=== PATIENT | male | born 1950 | race Hispanic/Latino ===

== ENCOUNTER 2017-10-16 16:49 | Emergency (ER) | payer MEDICARE ==
[2017-10-16 17:39] VITALS: BMI 23.2
--- NOTE | 2017-10-16 17:57 | ED PDOC ---
Arrival/HPI - General Chief Complaint: Psychiatric Evaluation Time Seen by Provider: 10/16/17 16:51 Historian: Patient - History of Present Illness Narrative History of Present Illness (Text): 10/16/17 16:55 Vamsi Rashid is a 66 year old male, whose past medical history includes EtOH abuse, depression, COPD, hypertension, bronchitis, emphysema, anxiety and tonsillectomy,who presents to the Emergency department for a Psychiatric evaluation for EtOH and depression. Patient reports he has been feeling depressed since landlord kicked his cat out of his home. Patient reports drinking EtOH today. Patient is calm/cooperative today in Emergency department. Patient denies suicidal ideation, neck pain, back pain, chest pain, shortness of breath, nausea, vomiting, diarrhea, or any other complaints. Symptom Onset: Gradual Symptom Course: Unchanged Activities at Onset: Light Context: Home Past Medical History - Provider Review Nursing Documentation Reviewed: Yes - Tetanus Immunization Tetanus Immunization: Up to Date - Cardiac Hx Hypertension: Yes - Pulmonary Hx Bronchitis: Yes Hx Chronic Obstructive Pulmonary Disease (COPD): Yes Hx Emphysema: Yes - Neurological Hx Seizures: No - HEENT Hx HEENT Disorder: No - Renal Hx Renal Disorder: No - Endocrine/Metabolic Hx Endocrine Disorders: No - Hematological/Oncological Hx Cancer: No - Integumentary Hx Dermatological Disorder: No - Musculoskeletal/Rheumatological Hx Musculoskeletal Disorders: No Hx Falls: No - Gastrointestinal Hx Gastrointestinal Disorders: No - Genitourinary/Gynecological Hx Sexually Transmitted Diseases: No - Psychiatric Hx Anxiety: Yes Hx Depression: Yes Hx Substance Use: No - Past Surgical History Past Surgical History: Unable to Obtain - Surgical History Hx Tonsillectomy: Yes - Anesthesia Hx Anesthesia: Yes Hx Anesthesia Reactions: No Hx Malignant Hyperthermia: No - Suicidal Assessment Feels Threatened In Home Enviroment: No Family/Social History - Physician Review Nursing Documentation Reviewed: Yes Family/Social History: No Known Family HX Smoking Status: Heavy Smoker > 10 Cigarettes Daily Hx Alcohol Use: Yes Hx Substance Use: No Hx Substance Use Treatment: No Allergies/Home Meds Allergies/Adverse Reactions: Allergies No Known Allergies Allergy (Verified 10/16/17 17:38) Home Medications: Home Meds Medication Instructions Recorded Confirmed Albuterol 0.5% [Albuterol Sulfate 0 IH 05/23/12 05/23/12 20 Ml] Clonazepam [Klonopin] 2 mg PO 05/23/12 05/23/12 Antihypertensive 08/19/15 Effexor 08/19/15 Review of Systems - Physician Review All systems were reviewed & negative as marked: Yes - Review of Systems Constitutional: Normal. absent: Fevers Eyes: Normal ENT: Normal Respiratory: Normal Cardiovascular: Normal. absent: Chest Pain Gastrointestinal: Normal. absent: Diarrhea, Nausea, Vomiting Genitourinary Male: Normal Musculoskeletal: Normal. absent: Back Pain, Neck Pain Skin: Normal Neurological: Normal Endocrine: Normal Hemo/Lymphatic: Normal Psychiatric: Depression (Patient has been depressed ever since landlord kicked his patient's cat out). absent: Normal, Suicidal Ideation Physical Exam Vital Signs Temp Pulse Resp BP Pulse Ox 10/16/17 18:44 98.3 F 82 19 98 10/16/17 17:40 98.1 F 89 18 130/70 99 - Systems Exam Head: Present: Atraumatic, Normocephalic Pupils: Present: PERRL Extroacular Muscles: Present: EOMI Conjunctiva: Present: Normal Mouth: Present: Moist Mucous Membranes Neck: Present: Normal Range of Motion Respiratory/Chest: Present: Clear to Auscultation, Good Air Exchange. No: Respiratory Distress, Accessory Muscle Use Cardiovascular: Present: Regular Rate and Rhythm, Normal S1, S2. No: Murmurs Abdomen: No: Tenderness, Distention, Peritoneal Signs Back: Present: Normal Inspection Upper Extremity: Present: Normal Inspection. No: Cyanosis, Edema Lower Extremity: Present: Normal Inspection. No: Edema Neurological: Present: GCS=15, CN II-XII Intact, Speech Normal Skin: Present: Warm, Dry, Normal Color. No: Rashes Psychiatric: Present: Alert, Oriented x 3, Normal Insight, Normal Concentration. No: Suicidal Ideation Medical Decision Making ED Course and Treatment: 10/16/17 16:55 Impression: 66 year old male presents to the Emergency department for Etoh and depression s/p landlord kicking patient's cat out of his home. Plan: -- Labs -- Urinalysis -- Reassess and disposition Progress Notes: 10/16/17 18:29 Patient is awake, alert, ate food and is ambulatory. Patient is cleared for discharge by forestry conservation worker. - Scribe Statement The provider has reviewed the documentation as recorded by the Scribe Carol Garza All medical record entries made by the Scribe were at my direction and personally dictated by me. I have reviewed the chart and agree that the record accurately reflects my personal performance of the history, physical exam, medical decision making, and the department course for this patient. I have also personally directed, reviewed, and agree with the discharge instructions and disposition. Disposition/Present on Arrival - Present on Arrival Any Indicators Present on Arrival: No History of DVT/PE: No History of Uncontrolled Diabetes: No Urinary Catheter: No History of Decub. Ulcer: No History Surgical Site Infection Following: None - Disposition Have Diagnosis and Disposition been Completed?: Yes Diagnosis: Alcohol abuse Disposition: HOME/ ROUTINE Disposition Time: 06:00 Condition: STABLE Discharge Instructions (ExitCare): Depression, Alcohol Abuse and Alcoholism (DC ) Forms: [facility] ([place])
[2017-10-16 18:43] VITALS: BP 130/70
[2017-10-16 18:45] VITALS: PULSE 82; RESP 19; TEMP 98.3; O2SAT 98
== END 2017-10-16 18:49 | disposition home or self-care (01) ==
LOC: ED 16:49
DX: F10.10 Alcohol abuse, uncomplicated (principal)

== ENCOUNTER 2018-06-29 14:39 | Inpatient (IN) | payer MEDICARE, OTHER ==
[2018-06-29 14:53] VITALS: BMI 21.2
--- NOTE | 2018-06-29 15:47 | ED PDOC ---
Arrival/HPI - General Chief Complaint: Dizziness/Lightheaded Time Seen by Provider: 06/29/18 14:47 Historian: Patient - History of Present Illness Narrative History of Present Illness (Text): 06/29/18 15:30 67 year old male, whose past medical history includes EtOH abuse, depression, COPD, hypertension, bronchitis, emphysema, anxiety and tonsillectomy, presents to the emergency department complaining of worsening dizziness for the past 2 month. Patient reports he had blood work done by Dr. Angel last week and was told to go to the ER due to being anemic, but patient never did. Patient reports he fell and caught himself last night due to the dizziness. Patient denies any head injury. Patient also reports nausea after every episode of dizziness and also reports dyspnea on exertion, but denies any fevers, chills, chest pain, abdominal pain, vomiting, diarrhea, back pain, neck pain, headache, or any other complaint. PMD: Dr. Angel Symptom Onset: Gradual Symptom Course: Worsening Activities at Onset: Light Context: Home Past Medical History - Provider Review Nursing Documentation Reviewed: Yes - Tetanus Immunization Tetanus Immunization: Up to Date - Cardiac Hx Hypertension: Yes - Pulmonary Hx Bronchitis: Yes Hx Chronic Obstructive Pulmonary Disease (COPD): Yes Hx Emphysema: Yes - Neurological Hx Seizures: No - HEENT Hx HEENT Disorder: No - Renal Hx Renal Disorder: No - Endocrine/Metabolic Hx Endocrine Disorders: No - Hematological/Oncological Hx Cancer: No - Integumentary Hx Dermatological Disorder: No - Musculoskeletal/Rheumatological Hx Musculoskeletal Disorders: No Hx Falls: No - Gastrointestinal Hx Gastrointestinal Disorders: No - Genitourinary/Gynecological Hx Sexually Transmitted Diseases: No - Psychiatric Hx Anxiety: Yes Hx Depression: Yes Hx Substance Use: No - Past Surgical History Past Surgical History: Unable to Obtain - Surgical History Hx Tonsillectomy: Yes - Anesthesia Hx Anesthesia: Yes Hx Anesthesia Reactions: No Hx Malignant Hyperthermia: No - Suicidal Assessment Feels Threatened In Home Enviroment: No Family/Social History - Physician Review Nursing Documentation Reviewed: Yes Family/Social History: No Known Family HX Smoking Status: Heavy Smoker > 10 Cigarettes Daily Hx Alcohol Use: Yes Hx Substance Use: No Hx Substance Use Treatment: No Allergies/Home Meds Allergies/Adverse Reactions: Allergies No Known Allergies Allergy (Verified 10/16/17 17:38) Home Medications: Home Meds Medication Instructions Recorded Confirmed Clonazepam [Klonopin] 2 mg PO HS 05/23/12 06/29/18 Review of Systems - Physician Review All systems were reviewed & negative as marked: Yes - Review of Systems Constitutional: absent: Fevers, Other (chills) Cardiovascular: FITZGERALD. absent: Chest Pain Gastrointestinal: Nausea. absent: Diarrhea, Vomiting Musculoskeletal: absent: Back Pain, Neck Pain Neurological: Dizziness. absent: Headache Physical Exam Vital Signs Reviewed: Yes Vital Signs Temp Pulse Resp BP Pulse Ox 06/29/18 14:54 98.5 F 111 H 96 H 129/81 99 Temperature: Afebrile Blood Pressure: Normal Pulse: Tachycardic Appearance: Positive for: Well-Appearing, Non-Toxic, Comfortable Pain Distress: None Mental Status: Positive for: Alert and Oriented X 3 - Systems Exam Head: Present: Atraumatic, Normocephalic. No: Other (no nystagmus) Pupils: Present: PERRL Extroacular Muscles: Present: EOMI Conjunctiva: Present: Normal Mouth: Present: Moist Mucous Membranes Neck: Present: Normal Range of Motion Respiratory/Chest: Present: Clear to Auscultation, Good Air Exchange. No: R espiratory Distress, Accessory Muscle Use Cardiovascular: Present: Regular Rate and Rhythm, Normal S1, S2. No: Murmurs Abdomen: No: Tenderness, Distention, Peritoneal Signs Back: Present: Normal Inspection Upper Extremity: Present: Normal Inspection. No: Cyanosis, Edema Lower Extremity: Present: Normal Inspection. No: Edema Neurological: Present: GCS=15, CN II-XII Intact, Speech Normal, Motor Func Grossly Intact, Normal Sensory Function, Other (no nystagmus). No: Gait Normal (unsteady) Skin: Present: Warm, Dry, Normal Color. No: Rashes Psychiatric: Present: Alert, Oriented x 3, Normal Insight, Normal Concentration Medical Decision Making ED Course and Treatment: 06/29/18 15:30 Impression: 67 year old male presents complaining of worsening dizziness for the past 2 months and reports that he is anemic by Dr. Angel last week. Plan: -- CT Head w/o contrast -- EKG -- Labs -- CXR -- UA Prior Visits: Notes and results from previous visits were reviewed. Progress Notes: EKG shows NSR at 84 BPM. Interpreted by me. PROCEDURE: CT HEAD WITHOUT CONTRAST. Dictator : Parmjit Ayala MD Report Date : 06/29/2018 17:17:04 IMPRESSION: No acute intracranial findings Chest X-ray Dictator : Parmjit Ayala MD Report Date : 06/29/2018 16:28:12 IMPRESSION: No active disease. 06/29/18 18:[address] Angel who is aware and agrees with the plan. Accepts patient into his service for admission. - Lab Interpretations I have reviewed the lab results: Yes - RAD Interpretation Radiology Orders: 06/29/18 15:17 HEAD W/O CONTRAST [CT] Stat 06/29/18 15:18 CHEST PORTABLE [RAD] Stat Machine Tool Operator: Radiologist - Scribe Statement The provider has reviewed the documentation as recorded by the Ashleeibmasood Lopez Provider Scribe Attestation: All medical record entries made by the Scribe were at my direction and personally dictated by me. I have reviewed the chart and agree that the record accurately reflects my personal performance of the history, physical exam, medical decision making, and the department course for this patient. I have also personally directed, reviewed, and agree with the discharge instructions and disposition. Disposition/Present on Arrival - Present on Arrival Any Indicators Present on Arrival: No History of DVT/PE: No History of Uncontrolled Diabetes: No Urinary Catheter: No History of Decub. Ulcer: No History Surgical Site Infection Following: None - Disposition Have Diagnosis and Disposition been Completed?: Yes Diagnosis: Near syncope, Frequent falls, Anemia, UTI (urinary tract infection) Disposition: HOSPITALIZED Disposition Time: 18:55 Patient Plan: Admission Condition: STABLE
[2018-06-29 16:19] LABS: BASO # 0.04 K/mm3 (0.0-2.0); BASO % 0.9 % (0.0-3.0); EOS # 0.1 (0.0-0.7); EOS % 2.2 % (1.5-5.0); HEMOGLOBIN 10.8 g/dL (14.0-18.0); LYMPH % 21.7 % (22.0-35.0); MEAN CELL VOLUME 88.7 fl (80.0-105.0); MEAN CORPUSCULAR HEMOGLOBIN 27.8 pg (25.0-35.0); MEAN CORPUSCULAR HGB CONC 31.4 g/dl (31.0-37.0); MONO # 0.8 (0.1-0.6); MONO % 17.7 % (1.0-6.0); RBC 3.88 10^6/uL (3.5-6.1); RED CELL DISTRIBUTION WIDTH 16.5 % (11.5-14.5); WHITE BLOOD COUNT 4.5 10^3/uL (4.5-11.0)
[2018-06-29 16:22] LABS: ALB/GLOB RATIO 1.3 (1.1-1.8); ALBUMIN 4.2 g/dL (3.0-4.8); ALT/SGPT 63 U/L (7-56); AST/SGOT 94 U/L (17-59); BLOOD UREA NITROGEN 18 mg/dL (7-21); GFR NON-AFRICAN AMERICAN > 60
[2018-06-29 16:23] LABS: INR 1.12; PARTIAL THROMBOPLASTIN TIME 32.9 Seconds (26.9-38.3); PROTHROMBIN TIME 12.4 SECONDS (9.4-12.5)
--- NOTE | 2018-06-29 16:31 | RAD ---
Date of service: 06/29/2018 HISTORY: dizzy COMPARISON: 06/29/2012 TECHNIQUE: 1 view obtained. FINDINGS: LUNGS: No active pulmonary disease. PLEURA: No significant pleural effusion identified, no pneumothorax apparent. CARDIOVASCULAR: No aortic atherosclerotic calcification present. Normal cardiac size. No pulmonary vascular congestion. OSSEOUS STRUCTURES: No significant abnormalities. VISUALIZED UPPER ABDOMEN: Normal. OTHER FINDINGS: None. IMPRESSION: No active disease.
[2018-06-29 16:39] LABS: TROPONIN I < 0.01 ng/mL
--- NOTE | 2018-06-29 17:20 | CT ---
Date of service: 06/29/2018 PROCEDURE: CT HEAD WITHOUT CONTRAST. HISTORY: dizzy, falling COMPARISON: 01/22/2012 TECHNIQUE: Axial computed tomography images were obtained through the head/brain without intravenous contrast. Radiation dose: Total exam DLP = 1039.1 mGy-cm. This CT exam was performed using one or more of the following dose reduction techniques: Automated exposure control, adjustment of the mA and/or kV according to patient size, and/or use of iterative reconstruction technique. FINDINGS: HEMORRHAGE: No intracranial hemorrhage. BRAIN: No mass effect or edema. Moderate atrophy. Mild microvascular changes. No acute findings VENTRICLES: Unremarkable. No hydrocephalus. CALVARIUM: Unremarkable. PARANASAL SINUSES: Unremarkable as visualized. No significant inflammatory changes. MASTOID AIR CELLS: Unremarkable as visualized. No inflammatory changes. OTHER FINDINGS: None. IMPRESSION: No acute intracranial findings
[2018-06-29 17:40] LABS: PH,URINE 7.5 (4.7-8.0); URINE BILIRUBIN NEGATIVE (NEGATIVE); URINE BLOOD NEGATIVE (NEGATIVE); URINE GLUCOSE (UA) NEGATIVE (NEGATIVE); URINE LEUKOCYTE ESTERASE MODERATE Leu/uL (NEGATIVE); URINE PROTEIN TRACE mg/dL (<30 mg/dL)
[2018-06-29 17:41] LABS: URINE APPEARANCE SLIGHT-CLOUDY (CLEAR); URINE COLOR DARK YELLOW (YELLOW)
[2018-06-29 17:44] LABS: URINE BACTERIA MANY /hpf
[2018-06-29 17:46] LABS: PHENCYCLIDINE, UR NEGATIVE (NEGATIVE)
[2018-06-29 17:48] LABS: BARBITURATES, UR NEGATIVE (NEGATIVE); BENZODIAZEPINES, UR NEGATIVE (NEGATIVE); OPIATES, UR NEGATIVE (NEGATIVE)
[2018-06-29] MEDS ORDERED: cefTRIAXone 1 GM/100 ML BAG IVPB STA (18:24)
[2018-06-29] MEDS ORDERED: Magnesium Sulfate 1 gm in D5W 1 GM/100 ML BAG IVPB ONE (19:26)
--- NOTE | 2018-06-29 20:17 | CARD ---
APPROVED REPORT Date of service: 06/29/2018 EKG Measurement Heart [id number] <Conclusion> Normal sinus rhythm Normal ECG
[2018-06-30] MEDS: Venlafaxine 75 mg ER Cap PO SCH (09:11)
[2018-06-30] MEDS: Magnesium Oxide 400 mg Tab UD PO SCH ×2 (09:11→17:54)
[2018-06-30] MEDS: cefTRIAXone 1 gm 1 GM/100 ML BAG IVPB SCH (09:11)
[2018-06-30 09:59] LABS: T3 1.22 ng/mL (0.97-1.69)
--- NOTE | 2018-06-30 11:30 | US ---
Indication: bph uti Technique: Bladder only/residual urine ultrasound Comparison: Bladder only/residual urine ultrasound performed 01/10/16 Findings: Prevoid urinary bladder: 230.9 mL Postvoid urinary bladder: 6.5 mL Bilateral ureteral jets are identified. No evidence of urinary bladder calculi. The prostate gland measures approximately 3.6 x 4.0 x 4.4 cm, volume 34 mL. No significant pelvic free fluid identified. Impression: Prevoid urinary bladder: 230.9 mL Postvoid urinary bladder: 6.5 mL Enlarged prostate gland. Recommend correlation with PSA.
--- NOTE | 2018-06-30 13:15 | HP ---
DATE OF EXAM: 06/30/2018 HISTORY OF PRESENT ILLNESS: A 67-year-old white male with history of tobacco abuse and alcohol abuse. Two weeks ago, the patient then directed to the emergency room by our staff because of a low hemoglobin and black tarry stools. The patient did not showed up in the emergency room and was lost to follow up; however, came to emergency room yesterday on the day of admission because of a syncopal episode after waking at home, getting out of bed, and passing out and woke up on the floor. He was brought to the emergency room. Hemoglobin at that point was 10.8, it had been 8.4 in our office two weeks ago. The patient denies that he had, had any recent blood transfusions. He states that he had stopped having black tarry stools, and he has not been drinking recently. There was no alcohol in his urine. The patient was found to have a urinary tract infection with pyuria and bacteria and was given Rocephin and admitted because of the syncopal episode. The patient denies any chest pain, palpitations, diaphoresis, etc. The patient does state that over the last several months, he has shortness of breath when walking up the stairs to his apartment and does complain sometimes of some chest pressure. The patient denies any history of coronary artery disease. The patient also does complain of shortness of breath and cough and is a current smoker, smoking last half a pack a day. The patient has a long history of alcohol abuse. He has been on and off psychiatric medications including naltrexone, Effexor, Seroquel and clonazepam among other medications in the past. REVIEW OF SYSTEMS: CARDIAC: Positive for shortness of breath, chest pressure, and syncope. GASTROINTESTINAL: At this point is negative for any further abdominal pain, nausea, vomiting, diarrhea or black stools. Stools apparently at this point are brown. GENITOURINARY: Positive for frequency, urgency, decrease in strength, difficulty in urinating, but denies any burning or dysuria or hematuria. CENTRAL NERVOUS SYSTEM: Positive for syncope; negative for headache, loss of vision, loss of strength or sensation in upper or lower extremities. Positive for dizziness. PHYSICAL EXAMINATION: GENERAL: Shows a well-developed and well-nourished white male, awake and alert. Speech is fluent. CHEST: Clear to auscultation and percussion. HEART: Regular sinus rhythm. No carotid bruits. ABDOMEN: Soft. Bowel sounds are normoactive. No hepatosplenomegaly noted. EXTREMITIES: There is normal strength in the upper and lower extremities. There is also sensation in the upper and lower extremities. Reflexes are 2+ brisk. NEUROLOGIC: Grossly intact. IMPRESSION: Urinary tract infection, possible benign prostatic hyperplasia, possible pyelonephritis, syncopal episode, shortness of breath, chest pain, and orthostatic hypotension noted on the floor today. Blood pressure is dropping from approximately 115 down to 85 on standing. Thomas Angel MD
--- NOTE | 2018-06-30 13:26 | CP.PCM.PCO ---
Physician Communication Note - Physician Communication Note Physician Communication Note: abnormal UA continue IV antibiotics urine culture pending
--- NOTE | 2018-06-30 19:13 | CARD ---
APPROVED REPORT Date of service: 06/30/2018 EXAM: Two-dimensional and M-mode echocardiogram with Doppler and color Doppler. INDICATION Syncope 2D DIMENSIONS Left Atrium (2D)3.7 (1.6-4.0cm)IVSd1.0 (0.7-1.1cm) LVDd3.9 (3.9-5.9cm)PWd1.1 (0.7-1.1cm) LVDs2.6 (2.5-4.0cm)FS (%) 32.7 % LVEF (%)61.8 (>50%) M-Mode DIMENSIONS Aortic Root3.20 (2.2-3.7cm)Aortic Cusp Exc.2.10 (1.5-2.0cm) Aortic Valve AoV Peak Jyetuoqe067.0cm/Amanda Peak GR.4mmHg Mitral Valve MV E Trxjpgfs32.3cm/sMV A Htbojhcn96.7cm/sE/A ratio0.7 TDI E/Lateral E'0.0E/Medial E'0.0 Tricuspid Valve TR Peak [id number]/sRAP [id number] Peak Gr.18mmHg [id number] LEFT VENTRICLE The left ventricle is normal size. The left ventricular function is normal. The left ventricular ejection fraction is within the normal range. Ej.Fr: 62%. RIGHT VENTRICLE The right ventricle is normal size. The right ventricular systolic function is normal. ATRIA The left atrium size is normal. The right atrium size is normal. AORTIC VALVE Aortic Valve Leaflets are Thickened. Valve Opening Normal. MITRAL VALVE The mitral valve is normal in structure. Mitral regurgitation Mild. TRICUSPID VALVE The tricuspid valve is normal in structure. There is trace to mild tricuspid regurgitation.RVSP: 28mm Hg. PULMONIC VALVE Mild to Moderate Pulmonic Regurge. PERICARDIAL EFFUSION There is no pericardial effusion. <Conclusion> The left ventricle is normal size. The left ventricular function is normal. The left ventricular ejection fraction is within the normal range. Ej.Fr: 62%. LV Shows Mild Diastolic Dysfunction. The right ventricle is normal size. The right ventricular systolic function is normal. The left atrium size is normal. The right atrium size is normal. Aortic Valve Leaflets are Thickened. Valve Opening Normal. The mitral valve is normal in structure. Mitral regurgitation is trace. The mitral valve is normal in structure. Mitral regurgitation Mild. The tricuspid valve is normal in structure. There is trace to mild tricuspid regurgitation.RVSP: 28mm Hg. Mild to Moderate Pulmonic Regurge. There is no pericardial effusion.
[2018-06-30] MEDS ORDERED: Arformoterol 15 mcg/2 ml Inh Sol IH SCH (20:00)
[2018-06-30] MEDS: Budesonide 0.5 mg/2 ml Inhal Susp UD IH SCH (22:45)
[2018-07-01 08:09] LABS: BASO # 0.07 K/mm3 (0.0-2.0); BASO % 1.7 % (0.0-3.0); EOS # 0.1 (0.0-0.7); EOS % 3.2 % (1.5-5.0); HEMOGLOBIN 9.8 g/dL (14.0-18.0); LYMPH # 1.4 (1.2-3.4); LYMPH % 33.8 % (22.0-35.0); MEAN CELL VOLUME 88.9 fl (80.0-105.0); MEAN CORPUSCULAR HEMOGLOBIN 27.8 pg (25.0-35.0); MEAN CORPUSCULAR HGB CONC 31.3 g/dl (31.0-37.0); MONO # 0.6 (0.1-0.6); MONO % 14.9 % (1.0-6.0); RBC 3.52 10^6/uL (3.5-6.1); RED CELL DISTRIBUTION WIDTH 16.3 % (11.5-14.5)
--- NOTE | 2018-07-01 08:25 | CON ---
DATE OF CONSULTATION: 06/30/2018 TYPE OF DICTATION: Cardiac evaluation. REASON FOR CONSULTATION: History of syncope, history of anemia, history of ex-tobacco and alcohol abuse. BRIEF CLINICAL HISTORY: This is a 67-year-old male with past medical history significant for borderline hypertension, depression, anxiety disorder, who was recently seen in Dr. Angel's office and found to have a hemoglobin of 8.7 and the patient was advised admission, but the patient did not come to the hospital. The patient said that he was walking and suddenly found himself on the floor. Next day, the patient was brought to the emergency room and found to have a hemoglobin of 10.88. Denies any black tarry stool. Denies any vomiting blood. Denies any chest pain. Denies any shortness of breath. Denies any palpitation. PAST HISTORY: Significant for COPD, depression, alcohol abuse, hypertension, bronchitis, emphysema. PAST SURGICAL HISTORY: Significant for tonsillectomy many years ago. CURRENT MEDICATIONS: Effexor 150 mg daily, Klonopin 2 mg daily, propranolol 10 mg three times a day, multivitamin, gabapentin, Seroquel and Desyrel. No recent cardiac workup patient has done. Recent EKG today shows normal sinus. No acute ST-T changes noted. PHYSICAL EXAMINATION: VITAL SIGNS: Height of the patient 5 feet 8 inches. Weight of the patient 139 pounds. Body mass index 21.3 kg/m2. Temperature afebrile, heart rate 72, blood pressure 128/73. HEENT: PERRLA. Extraocular muscles intact. NECK: Supple. No carotid bruit or thyromegaly. CHEST: Clear to auscultation. HEART: S1 and S2, regular. ABDOMEN: Soft. EXTREMITIES: Clubbing and cyanosis negative. BLOOD WORKUP: WBC 4.5, hemoglobin 10.9, hematocrit 34.4, platelet count 153,000. Chemistry shows sodium 130, potassium 3.6, chloride 96, carbon dioxide 35, anion gap of 12, BUN 18, and creatinine 0.7. Troponin 0.01. EKG shows normal sinus, no acute ST-T changes noted. ASSESSMENT: A 67-year-old male with past medical history significant for alcohol abuse, depression, anxiety disorder, chronic obstructive pulmonary disease, admitted with near-syncope. Hemoglobin a week ago was 10, reported around 9, and now it is 10.8, so had no evidence of acute myocardial infarction. Admitted with syncope. RECOMMENDATION: Rule out orthostatic hypotension, rule out ischemia, rule out structural heart disease. Lipid profile, TSH, hemoglobin A1c, and echo to assess LV function and stress test. Further recommendations after the stress test. We will put Holter monitor to rule out arrhythmia. Further recommendations will depend on hospital course. We will follow with you. Thank you Dr. Angel for providing us the opportunity in taking care of the patient. We will follow with you. Andrade Mccain MD
[2018-07-01] MEDS: Budesonide 0.5 mg/2 ml Inhal Susp UD IH SCH ×2 (08:56→20:14)
[2018-07-01] MEDS: Albuterol-Ipratrop 3 mg / 0.5 (3 ml) UD IH PRN ×2 (08:56→20:14)
[2018-07-01] MEDS: cefTRIAXone 1 gm 1 GM/100 ML BAG IVPB SCH (10:21)
[2018-07-01] MEDS: Venlafaxine 75 mg ER Cap PO SCH (10:22)
[2018-07-01] MEDS: Magnesium Oxide 400 mg Tab UD PO SCH ×2 (10:22→17:35)
--- NOTE | 2018-07-01 10:43 | CP.PCM.PN ---
Subjective - Date & Time of Evaluation Date of Evaluation: 07/01/18 Time of Evaluation: 06:45 - Subjective Subjective: Awake, alert, no distress Reason for consultation and follow up: Cardiac evaluation and follow up near syncope, history of anemia, COPD Seen and examined by me and Dr. Mccain Objective - Vital Signs/Intake and Output Vital Signs (last 24 hours): Temp Pulse Resp BP Pulse Ox 97.8 F 84 20 121/75 97 07/01/18 06:00 07/01/18 06:00 07/01/18 06:00 07/01/18 06:00 07/01/18 06:00 Intake and Output: 07/01/18 07/01/18 06:59 18:59 Intake Total 360 Output Total 700 Balance -340 - Medications Medications: Current Medications Albuterol/Ipratropium (Duoneb 3 Mg/0.5 Mg (3 Ml) Ud) 3 ml IH [id number] PRN PRN Reason: Shortness of Breath Last Admin: 07/01/18 08:56 Dose: 3 ml Budesonide (Pulmicort Respules) 0.5 mg IH [id number] [facility] Last Admin: 07/01/18 08:56 Dose: 0.5 mg Gabapentin (Neurontin) 300 mg PO TID [facility]; Protocol Last Admin: 07/01/18 10:22 Dose: 300 mg Ceftriaxone Sodium (Rocephin 1 Gram Ivpb) 1 gm in 100 mls @ 100 mls/hr IVPB DAILY [facility]; Protocol Last Admin: 07/01/18 10:21 Dose: 100 mls/hr Magnesium Oxide (Mag-Ox) 400 mg PO BID [facility] Last Admin: 07/01/18 10:22 Dose: 400 mg Pantoprazole Sodium (Protonix Ec Tab) 40 mg PO 0600,1600 [facility] Propranolol HCl (Inderal) 10 mg PO Q8H PRN PRN Reason: Anxiety Venlafaxine HCl (Effexor Xr) 75 mg PO DAILY [facility] Last Admin: 07/01/18 10:22 Dose: 75 mg - Labs Labs: 07/01/18 07:00 06/29/18 16:04 PT 12.4 SECONDS (9.4-12.5) 06/29/18 16:04 INR 1.12 06/29/18 16:04 APTT 32.9 Seconds (26.9-38.3) 06/29/18 16:04 - Constitutional Appears: Non-toxic, No Acute Distress - Head Exam Head Exam: NORMAL INSPECTION, NORMOCEPHALIC - Eye Exam Eye Exam: Normal appearance Pupil Exam: NORMAL ACCOMODATION - ENT Exam ENT Exam: Mucous Membranes Moist - Respiratory Exam Respiratory Exam: Clear to Ausculation Bilateral, NORMAL BREATHING PATTERN - Cardiovascular Exam Cardiovascular Exam: REGULAR RHYTHM, +S1, +S2 - GI/Abdominal Exam GI & Abdominal Exam: Soft, Normal Bowel Sounds - Extremities Exam Extremities Exam: Full ROM, Normal Capillary Refill - Neurological Exam Neurological Exam: Alert, Awake, Oriented x3 - Psychiatric Exam Psychiatric exam: Normal Affect, Normal Mood - Skin Skin Exam: Dry, Normal Color, Warm Assessment and Plan - Assessment and Plan (Free Text) Assessment: 67 year old male who came in to the ER due to complaining of worsening dizziness for the past 2 months. Patient reports he had blood work done by Dr. Angel last week and was told to go to the ER due to anemia however patient never did. History of alcohol abuse, depression, COPD, hypertension, bronchitis, emphysema, anxiety and tonsillectomy. EKG shows NSR, no acute ST changes. Admitted for near syncope. Orthostatic vital signs normal. Hemoglobin/hematocrit on admission 10.8/34.4. Echo done yesterday and showed LVEF 62%, trace mitral regurgitation, trace to mild tricuspid regurgitation, RVSP 28 mmHg, mild to moderate pulmonic regurgitation. For stress test today. Will put on Holter monitor after stress test to rule out arrhythmias.Urine culture positive for coagulase negative staphylococcus. On IV antibiotics. Plan: No distress, unsteady when walking For stress test today Holter monitor after stress test to rule out arrhythmias Heart rate stable Blood pressure stable Continue current treatment Continue current medications Urine culture positive for coagulase negative staphylococcus. Continue IV antibiotics as ordered Will follow up Plan and treatment discussed with Dr. Mccain
[2018-07-01] MEDS ORDERED: Magnesium Sulfate 2 gm/50 ml 2 GM/50 ML BAG IVPB STA (11:02)
--- NOTE | 2018-07-01 11:14 | PN ---
DATE: 07/01/2018 SUBJECTIVE: A 67-year-old white male, admitted to the hospital with a drop in his hemoglobin and a syncopal episode after standing up, who was found to be have orthostatic hypotension on admission, systolic of 115 lying and 85 sitting and standing. The patient also had a drop in his hemoglobin overnight from 10.8 to 9.8. Because of history of alcohol abuse, he also is hypomagnesemic, being replaced. His potassium is 3.6. He is having a stress test with Dr. Mccain this morning. Also he has a consultation for Dr. Mullen for possible GI bleed. He has a history of ETOH abuse in the past. The patient has history of tarry stools in the past. The patient is stable this morning. Has no chest pain this morning. No shortness of breath. He does complain of severe shortness of breath on any exertion, particularly in the walking 2 flight of stairs. further syncopal episodes in the hospital. The patient had a stress test this morning and GI evaluation if he is stable for an endoscopy with Dr. Mullen. The patient's H and H will be tracked. We will also start on a PPI and he will be followed. Thomas Angel MD
--- NOTE | 2018-07-01 11:19 | CON ---
DATE: 07/01/2018 GASTROENTEROLOGY CONSULTATION REQUESTING PHYSICIAN: Dr. Angel. REASON FOR CONSULTATION: I have been asked to see this 67-year-old male who had a syncopal episode at home. He came to the emergency room for a further workup. The patient had several days of dark stools approximately 2 weeks ago associated with a hemoglobin in the 10 g range. He was directed to go to the hospital, but did not comply. He now comes in with having passed out at home. The patient has a longstanding history of alcohol use, but states that he has not had a drink in about 4 weeks. For the prior 4 months, the patient drank a quart of vodka daily for 4 months. He currently denies any melena, chest pain, shortness of breath, or palpitations. He has a history of chronic gastroesophageal reflux disease, on PPI. PAST MEDICAL HISTORY: Notable for alcoholism, chronic tobacco use, anxiety disorder, gastroesophageal reflux disease, COPD, bronchitis, depression. PAST SURGICAL HISTORY: Unremarkable. SOCIAL HISTORY: The patient currently smokes up to half pack of cigarettes per day. He is an alcoholic. He has not drunk in several weeks. He consumes up to a quart of vodka daily and he has done so for over 20 years. FAMILY HISTORY: Noncontributory. REVIEW OF SYSTEMS: A 14-point review of systems is notable for syncopal episode and gastroesophageal reflux disease. PHYSICAL EXAMINATION: GENERAL: Well-developed male, lying in bed, in no acute distress. VITAL SIGNS: Reveal temperature of 97.8, blood pressure 121/75, heart rate 90. HEENT: Reveals sclerae to be white. Conjunctivae are pale. NECK: Supple. CHEST: Reveals scattered rhonchi. HEART: Exam reveals regular rate and rhythm. ABDOMEN: Soft, nontender. EXTREMITIES: Show no edema. LABORATORY DATA: Reveal white blood cell count of 4, hemoglobin 9.8, platelet count of 182,000. Chemistries reveal BUN 18, creatinine 0.7, AST 94, ALT 63, alkaline phosphatase of 89. Troponins are normal. IMPRESSION: This is a 67-year-old male with syncopal episode with history of dark stools several weeks ago and anemia. His hemoglobin currently is in the 10 g range and apparently improved from a prior complete blood count two weeks ago, one must rule out peptic ulcer disease versus alcohol-induced gastritis. The patient did have a colonoscopy several years ago. RECOMMENDATIONS: 1. We will schedule the patient for an upper endoscopy for the a.m. If he is cleared by cardiology, he is to have an echocardiogram and a thallium stress test today. Noble Mullen MD
[2018-07-01] MEDS ORDERED: Aminophylline 25 mg/ml Inj ONE (11:36)
--- NOTE | 2018-07-01 13:17 | CP.PCM.PCO ---
Additional Comments - Additional Comments Additional Comments: stress test result pending, PFT's pending, PT eval pending, UTI continue IV antibiotics.
[2018-07-01] MEDS: Pantoprazole 40 mg EC Tab PO SCH (17:35)
--- NOTE | 2018-07-01 22:09 | CARD ---
APPROVED REPORT Date of service: 07/01/2018 Protocol: LEXISCAN Test Type: Lexiscan Sestamibi Stress Test Attending Physician: Dr. Andrade Doe Referring Physician: Dr. Thomas Angel Test Indications: Chest Pain Height:5 ft 8 in Weight:139lbs Medications: Albuterol, Pulmicort, Rocephin Neurontin, Mag-Ox, Inderal Effexor Xr Medical History: 67 year old male with ahistory of chest pain, SOB, COPD, HTN, GERD, anxiety, ETOH, falls Target HR: 153 bpm Resting ECG: RSR. Resting Heart Rate: 73 bpm Resting Blood Pressure: 130/64mmHg Submaximum (85%): 130 bpm PROCEDURE Pharmacologic stress testing was performed using 0.4mg per 5ml of regadenoson given intravenously over 7-10 seconds. Reversal agent aminophyline 50 mg, given intravenously for Nausea. POST EXERCISE Reason for Termination: Protocol completed Target HR: No Max HR: 75 bpm 67% of Maximum Predicted HR: 153 bpm Exercise duration: 00:31 min:sec, 0 Stage Exercise capacity: 1.0METs Max Blood Pressure: 130/64mmHg Blood Pressure response to exercise: normal resting BP - appropriate response Heart Rate response to exercise: appropriate Chest Pain: No, none Angina index: 0 Arrhythmia: No, none ST Change: No, none Deviation: 0 mm INTERPRETATION Stress EKG Conclusion: IV LEXISCAN NUCLEAR STRESS TEST NEGATIVE FOR CHEST PAIN AND NEGTIVE FOR ST-T CHANGES. NUCLEAR SCAN REPORT PENDING. Signed by Andrade Doe Electronically Approved: 07/01/2018 13:15:06 EXAM: Myocardial Perfusion REST/STRESS Stress Test Type: Pharmacologic Imaging Protocol The imaging protocol used to acquire images was Rest Tc-99m/stress Tc-99m 1 day Rest Spect myocardial perfusion imaging was performed in supine position 50 minutes following the injection of 10.3 mCi of Tc-99 Myoview. At peak stress, the patient was injected intravenously with 30.2mCi of Tc-99 tetrofosmin after an infusion time of 0 minutes and 10 seconds. Gated Stress Spect was performed 65 minutes after intravenous Tc-99 Myoview injection. The images were gated to evaluate regional wall motion and calculate ventricular ejection fraction.Images were reconstructed using backfilter projection method in short horizontal and verticle long axis. Spect slices were generated. LV Perfusion The quality of the study is good. The left ventricle is normal in size. The right ventricle is unremarkable. The lung uptake is within normal limits. The distribution of tracer reveals normal uptake pattern throughout the LV myocardium on the stress study. The rest myocardial perfusion study shows no significant change. Wall Motion Wall motion study shows good contractility of the left ventricle. LVEF = 64%. Conclusion 1. Normal SPECT myocardial perfusion study. 2. Normal gated wall motion of the left ventricle.
[2018-07-02] MEDS: Pantoprazole 40 mg EC Tab PO SCH ×3 (06:09→17:26)
[2018-07-02] MEDS: Budesonide 0.5 mg/2 ml Inhal Susp UD IH SCH (07:37)
[2018-07-02] MEDS: Albuterol-Ipratrop 3 mg / 0.5 (3 ml) UD IH PRN (07:37)
--- NOTE | 2018-07-02 07:52 | CP.PCM.PN ---
Subjective - Date & Time of Evaluation Date of Evaluation: 07/02/18 Time of Evaluation: 06:35 - Subjective Subjective: Awake, alert, no distress, for EGD Reason for consultation and follow up: Cardiac evaluation and follow up near syncope, history of anemia, COPD Seen and examined by me and Dr. Mccain Objective - Vital Signs/Intake and Output Vital Signs (last 24 hours): Temp Pulse Resp BP Pulse Ox 97.6 F 97 H 20 120/68 98 07/02/18 05:59 07/02/18 05:59 07/02/18 05:59 07/02/18 05:59 07/02/18 05:59 Intake and Output: 07/02/18 07/02/18 06:59 18:59 Intake Total 360 Output Total 1425 Balance -1065 - Medications Medications: Current Medications Albuterol/Ipratropium (Duoneb 3 Mg/0.5 Mg (3 Ml) Ud) 3 ml IH [id number] PRN PRN Reason: Shortness of Breath Last Admin: 07/02/18 07:37 Dose: 3 ml Budesonide (Pulmicort Respules) 0.5 mg IH [id number] [facility] Last Admin: 07/02/18 07:37 Dose: 0.5 mg Gabapentin (Neurontin) 300 mg PO TID [facility]; Protocol Last Admin: 07/01/18 17:35 Dose: 300 mg Ceftriaxone Sodium (Rocephin 1 Gram Ivpb) 1 gm in 100 mls @ 100 mls/hr IVPB DAILY [facility]; Protocol Last Admin: 07/01/18 10:21 Dose: 100 mls/hr Magnesium Oxide (Mag-Ox) 400 mg PO BID [facility]NA Last Admin: 07/01/18 17:35 Dose: 400 mg Pantoprazole Sodium (Protonix Ec Tab) 40 mg PO 0600,1600 [facility] Last Admin: 07/02/18 06:53 Dose: 40 mg Propranolol HCl (Inderal) 10 mg PO Q8H PRN PRN Reason: Anxiety Venlafaxine HCl (Effexor Xr) 75 mg PO DAILY [facility] Last Admin: 07/01/18 10:22 Dose: 75 mg - Labs Labs: 07/01/18 07:00 06/29/18 16:04 PT 12.4 SECONDS (9.4-12.5) 06/29/18 16:04 INR 1.12 06/29/18 16:04 APTT 32.9 Seconds (26.9-38.3) 06/29/18 16:04 - Constitutional Appears: Non-toxic, No Acute Distress - Head Exam Head Exam: NORMAL INSPECTION, NORMOCEPHALIC - Eye Exam Eye Exam: Normal appearance Pupil Exam: NORMAL ACCOMODATION - ENT Exam ENT Exam: Mucous Membranes Moist, Normal Exam - Respiratory Exam Respiratory Exam: Decreased Breath Sounds, Clear to Ausculation Bilateral, NORMAL BREATHING PATTERN - Cardiovascular Exam Cardiovascular Exam: REGULAR RHYTHM, +S1, +S2 - GI/Abdominal Exam GI & Abdominal Exam: Soft, Normal Bowel Sounds - Extremities Exam Extremities Exam: Full ROM, Normal Capillary Refill - Neurological Exam Neurological Exam: Alert, Awake, Oriented x3 - Psychiatric Exam Psychiatric exam: Normal Affect, Normal Mood - Skin Skin Exam: Dry, Normal Color, Warm Assessment and Plan - Assessment and Plan (Free Text) Assessment: 67 year old male who came in to the ER due to complaining of worsening dizziness for the past 2 months. Patient reports he had blood work done by Dr. Angel last week and was told to go to the ER due to anemia however patient never did. History of alcohol abuse, depression, COPD, hypertension, bronchitis, emphysema, anxiety and tonsillectomy. EKG shows NSR, no acute ST changes. Admitted for near syncope. Orthostatic vital signs normal. Hemoglobin/hematocrit on admission 10.8/34.4. Echo done and showed LVEF 62%, trace mitral regurgitation, trace to mild tricuspid regurgitation, RVSP 28 mmHg, mild to moderate pulmonic regurgitation. Stress test done with normal results. On Holter monitor. Urine culture positive for coagulase negative staphylococcus. On IV antibiotics. Cleared for EGD with moderate risk. For EGD today. Plan: For EGD today No distress, Holter monitor Heart rate stable Blood pressure stable Hemoglobin/hematocrit stable Continue current treatment Continue current medications Urine culture positive for coagulase negative staphylococcus. Continue IV antibiotics as ordered Will follow up Plan and treatment discussed with Dr. Mccain
[2018-07-02] MEDS ORDERED: Propofol 10 mg/ml Inj (20 ML) ONE ×2 (08:06→08:20)
[2018-07-02] MEDS ORDERED: Sodium Chloride 0.9% 1,000 ML IV SCH (08:45)
[2018-07-02 10:25] LABS: BASO # 0.08 K/mm3 (0.0-2.0); EOS # 0.1 (0.0-0.7); HEMOGLOBIN 9.8 g/dL (14.0-18.0); LYMPH # 1.1 (1.2-3.4); LYMPH % 27.1 % (22.0-35.0); MEAN CELL VOLUME 89.5 fl (80.0-105.0); MEAN CORPUSCULAR HEMOGLOBIN 27.1 pg (25.0-35.0); MEAN CORPUSCULAR HGB CONC 30.3 g/dl (31.0-37.0); MONO # 0.6 (0.1-0.6); MONO % 14.1 % (1.0-6.0); RBC 3.61 10^6/uL (3.5-6.1); RED CELL DISTRIBUTION WIDTH 16.4 % (11.5-14.5); WHITE BLOOD COUNT 4.1 10^3/uL (4.5-11.0)
[2018-07-02 10:35] LABS: ALB/GLOB RATIO 1.2 (1.1-1.8); ALBUMIN 3.9 g/dL (3.0-4.8); ALT/SGPT 63 U/L (7-56); AST/SGOT 55 U/L (17-59); BLOOD UREA NITROGEN 10 mg/dL (7-21); CALCIUM 8.8 mg/dL (8.4-10.5); GFR NON-AFRICAN AMERICAN > 60
[2018-07-02] MEDS: cefTRIAXone 1 gm 1 GM/100 ML BAG IVPB SCH (11:02)
[2018-07-02] MEDS: Venlafaxine 75 mg ER Cap PO SCH (11:03)
[2018-07-02] MEDS: Magnesium Oxide 400 mg Tab UD PO SCH ×2 (11:03→17:26)
--- NOTE | 2018-07-02 14:45 | CP.PCM.DIS ---
<Miles Castillo - Last Filed: 07/02/18 14:35> Provider - Provider Date of Admission: 06/29/18 18:59 Attending physician: Thomas Angel MD Primary care physician: Thomas Angel MD Consults: 06/30/18 08:33 Physician Consult Routine Comment: Consulting Provider: Andrade Mccain Consulting Physician: Andrade Mccain Reason for Consult: sob,orthoststic hypotension 07/01/18 08:17 Physician Consult Routine Comment: Consulting Provider: Noble Mullen Consulting Physician: Noble Mullen Reason for Consult: tarry stool /etoh/anemia Time Spent in preparation of Discharge (in minutes): 45 Hospital Course - Lab Results Lab Results: Micro Results 06/29/18 21:05 Blood Blood Culture - Preliminary NO GROWTH AFTER 48 HOURS 06/29/18 18:13 Urine,Clean Catch Urine Culture - Final Coagulase Neg Staphylococcus Most Recent Lab Values WBC 4.1 10^3/uL (4.5-11.0) L 07/02/18 10:00 RBC 3.61 10^6/uL (3.5-6.1) 07/02/18 10:00 Hgb 9.8 g/dL (14.0-18.0) L 07/02/18 10:00 Hct 32.3 % (42.0-52.0) L 07/02/18 10:00 MCV 89.5 fl (80.0-105.0) 07/02/18 10:00 MCH 27.1 pg (25.0-35.0) 07/02/18 10:00 MCHC 30.3 g/dl (31.0-37.0) L 07/02/18 10:00 RDW 16.4 % (11.5-14.5) H 07/02/18 10:00 Plt Count 232 10^3/uL (120.0-450.0) 07/02/18 10:00 MPV 10.0 fl (7.0-11.0) 07/02/18 10:00 Neut % (Auto) 54.8 % (50.0-68.0) 07/02/18 10:00 Lymph % (Auto) 27.1 % (22.0-35.0) 07/02/18 10:00 [place] % (Auto) 14.1 % (1.0-6.0) H 07/02/18 10:00 Eos % (Auto) 2.0 % (1.5-5.0) 07/02/18 10:00 Baso % (Auto) 2.0 % (0.0-3.0) 07/02/18 10:00 Lymph # (Auto) 1.1 (1.2-3.4) L 07/02/18 10:00 [place] # (Auto) 0.6 (0.1-0.6) 07/02/18 10:00 Eos # (Auto) 0.1 (0.0-0.7) 07/02/18 10:00 Baso # (Auto) 0.08 K/mm3 (0.0-2.0) 07/02/18 10:00 Absolute Neuts (auto) 2.25 (1.4-6.5) 07/02/18 10:00 PT 12.4 SECONDS (9.4-12.5) 06/29/18 16:04 INR 1.12 06/29/18 16:04 APTT 32.9 Seconds (26.9-38.3) 06/29/18 16:04 Sodium 139 mmol/L (132-148) 07/02/18 10:00 Potassium 4.3 mmol/L (3.6-5.0) 07/02/18 10:00 Chloride 105 mmol/L (98-107) 07/02/18 10:00 Carbon Dioxide 28 mmol/L (21-33) 07/02/18 10:00 Anion Gap 11 (10-20) 07/02/18 10:00 BUN 10 mg/dL (7-21) 07/02/18 10:00 Creatinine 0.7 mg/dl (0.8-1.5) L 07/02/18 10:00 Est GFR ( Amer) > 60 07/02/18 10:00 Est GFR (Non-Af Amer) > 60 07/02/18 10:00 Random Glucose 98 mg/dL (70-110) 07/02/18 10:00 Hemoglobin A1c 4.6 % (4.2-6.5) 07/01/18 06:55 Calcium 8.8 mg/dL (8.4-10.5) 07/02/18 10:00 Phosphorus 3.6 mg/dL (2.5-4.5) 07/02/18 10:00 Magnesium 2.0 mg/dL (1.7-2.2) 07/02/18 10:00 Total Bilirubin 0.2 mg/dL (0.2-1.3) 07/02/18 10:00 AST 55 U/L (17-59) 07/02/18 10:00 ALT 63 U/L (7-56) H 07/02/18 10:00 Alkaline Phosphatase 76 U/L (38-126) 07/02/18 10:00 Lactate Dehydrogenase 540 U/L (333-699) 06/29/18 16:04 Total Creatine Kinase 21 U/L (35-230) L 06/29/18 16:04 Troponin I < 0.01 ng/mL 06/29/18 16:04 Total Protein 7.0 g/dL (5.8-8.3) 07/02/18 10:00 Albumin 3.9 g/dL (3.0-4.8) 07/02/18 10:00 Globulin 3.2 gm/dL 07/02/18 10:00 Albumin/Globulin Ratio 1.2 (1.1-1.8) 07/02/18 10:00 Triglycerides 59 mg/dL (35-160) 07/01/18 06:55 Cholesterol 122 mg/dL (130-200) L 07/01/18 06:55 LDL Cholesterol Direct 63 mg/dL (0-129) 07/01/18 06:55 HDL Cholesterol 49 mg/dL (29-60) 07/01/18 06:55 Thyroxine (T4) 5.4 ug/dL (5.5-11.0) L 06/30/18 08:55 Total T3 1.22 ng/mL (0.97-1.69) 06/30/18 08:55 TSH 3rd Generation 0.04 mIU/mL (0.46-4.68) L 06/29/18 16:04 Urine Color Dark yellow (YELLOW) 06/29/18 17:15 Urine Appearance Slight-cloudy (CLEAR) 06/29/18 17:15 Urine pH 7.5 (4.7-8.0) 06/29/18 17:15 Ur Specific [place] 1.015 (1.005-1.035) 06/29/18 17:15 Urine Protein Trace mg/dL (<30 mg/dL) H 06/29/18 17:15 Urine Glucose (UA) Negative mg/dL (NEGATIVE) 06/29/18 17:15 Urine Ketones Trace mg/dL (NEGATIVE) H 06/29/18 17:15 Urine Blood Negative (NEGATIVE) 06/29/18 17:15 Urine Nitrate Positive (NEGATIVE) H 06/29/18 17:15 Urine Bilirubin Negative (NEGATIVE) 06/29/18 17:15 Urine Urobilinogen 2.0 E.U./dL (<1 E.U./dL) H 06/29/18 17:15 Ur Leukocyte Esterase Moderate [place]/uL (NEGATIVE) H 06/29/18 17:15 Urine RBC None /hpf (0-2) 06/29/18 17:15 Urine WBC 10 - 15 /hpf (0-6) H 06/29/18 17:15 Ur Epithelial Cells None /hpf (0-5) 06/29/18 17:15 Urine Bacteria Many /hpf (NONE) 06/29/18 17:15 Urine Opiates Screen Negative (NEGATIVE) 06/29/18 17:15 Urine Methadone Screen Negative (NEGATIVE) 06/29/18 17:15 Ur Barbiturates Screen Negative (NEGATIVE) 06/29/18 17:15 Ur Phencyclidine Scrn Negative (NEGATIVE) 06/29/18 17:15 Ur Amphetamines Screen Negative (NEGATIVE) 06/29/18 17:15 U Benzodiazepines Scrn Negative (NEGATIVE) 06/29/18 17:15 U Oth Cocaine Metabols Negative (NEGATIVE) 06/29/18 17:15 U Cannabinoids Screen Negative (NEGATIVE) 06/29/18 17:15 Alcohol, Quantitative < 10 mg/dL (0-10) 06/29/18 16:04 - Hospital Course Hospital Course: 67 year old male, whose past medical history includes EtOH abuse, depression, COPD, hypertension, bronchitis, emphysema, anxiety and tonsillectomy, presents to the emergency department complaining of worsening dizziness for the past 2 month. Patient reports he had blood work done by Dr. Agnel last week and was told to go to the ER due to being anemic, but patient never did. Patient reports he fell and caught himself last night due to the dizziness. Patient admitted to the hospital s/p a syncopal episode, patient found to have orthostatic hypotension on admission, as well as anemia with a Hgb of 9.8, and hypomagnesemia. Dr. Mccain cardiologgy was consulted, stress test performed and resulted, please refer to documentation for details, Patient had an EGD performed by Dr. Mullen, recommended protonix 40mg daily with follow up outpatient. Patient was started on ciprofloxacin for UTI. Patient's hypomagnesemia replaced. Patient's Heart rate stable, Blood pressure stable, as well as his H&H. Upon Discharge: 1. patient is to follow up with PMD within 1 week 2. Patient is to follow up with GEORGINA López within 1 week 3. Patient is to note new medications to regimen: 1. Ciprofloxacin 500mg one tablet by mouth twice a day for 7 days, 2. Pantoprozole 40 mg one tablet daily, magnesium oxide 400mg one table by mouth twice a day. 4. Patient is to continue refraining from alcohol 5. Patient is to eat a more balance diet Discharge Exam - Head Exam Head Exam: NORMAL INSPECTION, NORMOCEPHALIC - Eye Exam Eye Exam: EOMI, Normal appearance, PERRL Pupil Exam: NORMAL ACCOMODATION, PERRL - ENT Exam ENT Exam: Mucous Membranes Moist - Respiratory Exam Respiratory Exam: Clear to PA & Lateral, NORMAL BREATHING PATTERN, UNREMARKABLE - Cardiovascular Exam Cardiovascular Exam: REGULAR RHYTHM, +S1, +S2 - GI/Abdominal Exam GI & Abdominal Exam: Normal Bowel Sounds, Soft, Unremarkable. absent: Tenderness - Neurological Exam Neurological exam: Alert, CN II-XII Intact, Normal Gait, Oriented x3, Reflexes Normal - Psychiatric Exam Psychiatric exam: Normal Affect, Normal Mood - Skin Skin Exam: Dry, Intact, Normal Color, Warm Discharge Plan - Discharge Medications Prescriptions: Ciprofloxacin [Cipro] 500 mg PO Q12 #14 tab Magnesium Oxide [Mag-Ox] 400 mg PO BID #14 tab Pantoprazole [Protonix EC Tab] 40 mg PO DAILY #14 ect - Follow Up Plan Condition: GOOD Disposition: HOME/ ROUTINE Instructions: [place] Diet, Gastritis (DC), Eosinophilic Esophagitis Additional Instructions: 1. patient is to follow up with PMD within 1 week 2. Patient is to follow up with Dr. Mullen GI within 1 week. 3. Patient to follow up with Dr Adán regarding results from your Holter monitor 4. Patient is to note new medications to regimen: 1. Ciprofloxacin 500mg one tablet by mouth twice a day for 7 days, 2. Pantoprozole 40 mg one tablet daily, magnesium oxide 400mg one table by mouth twice a day. 5. Patient is to continue refraining from alcohol 6. Patient is to eat a more balance diet 7. Should symptoms change or worse, please visit the nearest ED Referrals: Andrade Mccain MD [Staff Provider] - Thomas Angel MD [Primary Care Provider] - Noble Mullen MD [Staff Provider] - <Benjamin Saeed S - Last Filed: 07/02/18 18:25> Provider - Provider Date of Admission: 06/29/18 18:59 Attending physician: Thomas Angel MD Primary care physician: Thomas Angel MD Consults: 06/30/18 08:33 Physician Consult Routine Comment: Consulting Provider: Andrade Mccain Consulting Physician: Andrade Mccain Reason for Consult: sob,orthoststic hypotension 07/01/18 08:17 Physician Consult Routine Comment: Consulting Provider: Noble Mullen Consulting Physician: Noble Mullen Reason for Consult: tarry stool /etoh/anemia Hospital Course - Lab Results Lab Results: Micro Results 06/29/18 21:05 Blood Blood Culture - Preliminary NO GROWTH AFTER 48 HOURS 06/29/18 18:13 Urine,Clean Catch Urine Culture - Final Coagulase Neg Staphylococcus Most Recent Lab Values WBC 4.1 10^3/uL (4.5-11.0) L 07/02/18 10:00 RBC 3.61 10^6/uL (3.5-6.1) 07/02/18 10:00 Hgb 9.8 g/dL (14.0-18.0) L 07/02/18 10:00 Hct 32.3 % (42.0-52.0) L 07/02/18 10:00 MCV 89.5 fl (80.0-105.0) 07/02/18 10:00 MCH 27.1 pg (25.0-35.0) 07/02/18 10:00 MCHC 30.3 g/dl (31.0-37.0) L 07/02/18 10:00 RDW 16.4 % (11.5-14.5) H 07/02/18 10:00 Plt Count 232 10^3/uL (120.0-450.0) 07/02/18 10:00 MPV 10.0 fl (7.0-11.0) 07/02/18 10:00 Neut % (Auto) 54.8 % (50.0-68.0) 07/02/18 10:00 Lymph % (Auto) 27.1 % (22.0-35.0) 07/02/18 10:00 [place] % (Auto) 14.1 % (1.0-6.0) H 07/02/18 10:00 Eos % (Auto) 2.0 % (1.5-5.0) 07/02/18 10:00 Baso % (Auto) 2.0 % (0.0-3.0) 07/02/18 10:00 Lymph # (Auto) 1.1 (1.2-3.4) L 07/02/18 10:00 [place] # (Auto) 0.6 (0.1-0.6) 07/02/18 10:00 Eos # (Auto) 0.1 (0.0-0.7) 07/02/18 10:00 Baso # (Auto) 0.08 K/mm3 (0.0-2.0) 07/02/18 10:00 Absolute Neuts (auto) 2.25 (1.4-6.5) 07/02/18 10:00 PT 12.4 SECONDS (9.4-12.5) 06/29/18 16:04 INR 1.12 06/29/18 16:04 APTT 32.9 Seconds (26.9-38.3) 06/29/18 16:04 Sodium 139 mmol/L (132-148) 07/02/18 10:00 Potassium 4.3 mmol/L (3.6-5.0) 07/02/18 10:00 Chloride 105 mmol/L (98-107) 07/02/18 10:00 Carbon Dioxide 28 mmol/L (21-33) 07/02/18 10:00 Anion Gap 11 (10-20) 07/02/18 10:00 BUN 10 mg/dL (7-21) 07/02/18 10:00 Creatinine 0.7 mg/dl (0.8-1.5) L 07/02/18 10:00 Est GFR ( Amer) > 60 07/02/18 10:00 Est GFR (Non-Af Amer) > 60 07/02/18 10:00 Random Glucose 98 mg/dL (70-110) 07/02/18 10:00 Hemoglobin A1c 4.6 % (4.2-6.5) 07/01/18 06:55 Calcium 8.8 mg/dL (8.4-10.5) 07/02/18 10:00 Phosphorus 3.6 mg/dL (2.5-4.5) 07/02/18 10:00 Magnesium 2.0 mg/dL (1.7-2.2) 07/02/18 10:00 Total Bilirubin 0.2 mg/dL (0.2-1.3) 07/02/18 10:00 AST 55 U/L (17-59) 07/02/18 10:00 ALT 63 U/L (7-56) H 07/02/18 10:00 Alkaline Phosphatase 76 U/L (38-126) 07/02/18 10:00 Lactate Dehydrogenase 540 U/L (333-699) 06/29/18 16:04 Total Creatine Kinase 21 U/L (35-230) L 06/29/18 16:04 Troponin I < 0.01 ng/mL 06/29/18 16:04 Total Protein 7.0 g/dL (5.8-8.3) 07/02/18 10:00 Albumin 3.9 g/dL (3.0-4.8) 07/02/18 10:00 Globulin 3.2 gm/dL 07/02/18 10:00 Albumin/Globulin Ratio 1.2 (1.1-1.8) 07/02/18 10:00 Triglycerides 59 mg/dL (35-160) 07/01/18 06:55 Cholesterol 122 mg/dL (130-200) L 07/01/18 06:55 LDL Cholesterol Direct 63 mg/dL (0-129) 07/01/18 06:55 HDL Cholesterol 49 mg/dL (29-60) 07/01/18 06:55 Thyroxine (T4) 5.4 ug/dL (5.5-11.0) L 06/30/18 08:55 Total T3 1.22 ng/mL (0.97-1.69) 06/30/18 08:55 TSH 3rd Generation 0.04 mIU/mL (0.46-4.68) L 06/29/18 16:04 Urine Color Dark yellow (YELLOW) 06/29/18 17:15 Urine Appearance Slight-cloudy (CLEAR) 06/29/18 17:15 Urine pH 7.5 (4.7-8.0) 06/29/18 17:15 Ur Specific [place] 1.015 (1.005-1.035) 06/29/18 17:15 Urine Protein Trace mg/dL (<30 mg/dL) H 06/29/18 17:15 Urine Glucose (UA) Negative mg/dL (NEGATIVE) 06/29/18 17:15 Urine Ketones Trace mg/dL (NEGATIVE) H 06/29/18 17:15 Urine Blood Negative (NEGATIVE) 06/29/18 17:15 Urine Nitrate Positive (NEGATIVE) H 06/29/18 17:15 Urine Bilirubin Negative (NEGATIVE) 06/29/18 17:15 Urine Urobilinogen 2.0 E.U./dL (<1 E.U./dL) H 06/29/18 17:15 Ur Leukocyte Esterase Moderate [place]/uL (NEGATIVE) H 06/29/18 17:15 Urine RBC None /hpf (0-2) 06/29/18 17:15 Urine WBC 10 - 15 /hpf (0-6) H 06/29/18 17:15 Ur Epithelial Cells None /hpf (0-5) 06/29/18 17:15 Urine Bacteria Many /hpf (NONE) 06/29/18 17:15 Urine Opiates Screen Negative (NEGATIVE) 06/29/18 17:15 Urine Methadone Screen Negative (NEGATIVE) 06/29/18 17:15 Ur Barbiturates Screen Negative (NEGATIVE) 06/29/18 17:15 Ur Phencyclidine Scrn Negative (NEGATIVE) 06/29/18 17:15 Ur Amphetamines Screen Negative (NEGATIVE) 06/29/18 17:15 U Benzodiazepines Scrn Negative (NEGATIVE) 06/29/18 17:15 U Oth Cocaine Metabols Negative (NEGATIVE) 06/29/18 17:15 U Cannabinoids Screen Negative (NEGATIVE) 06/29/18 17:15 Alcohol, Quantitative < 10 mg/dL (0-10) 06/29/18 16:04 - Hospital Course Hospital Course: Pt seen and examined by me. I have reviewed the note of the medical center manager and I agree with it. I have discussed the assessment and plan with the resident. I have reviewed the medications and the last labs.
[2018-07-02 18:52] VITALS: BP 147/83; PULSE 88; RESP 20; TEMP 98.6; O2SAT 100
--- NOTE | 2018-07-03 11:06 | DS ---
HISTORY OF PRESENT ILLNESS: The patient was seen and examined. I do agree with the note of the medical lab tech instructor. I was involved in the plan of care. The patient is going to be discharged home today. The patient is having dizziness. His dizziness has improved. He had orthostatic hypotension. He is anemic with a hemoglobin of 9.8. He is hypomagnesemic and the magnesium is replaced. He is going to be placed on Cipro for antibiotics. He was advised about following up with his primary care doctor, Dr. Angel, this is coverage for Dr. Angel. His labs have been reviewed. He is going to be seen by Dr. Mullen and followed up. He had a stress test, which was negative. He is admitted to the hospital because of a syncopal episode from his orthostatic hypotension that has resolved. He has COPD, but breathing has been controlled and he breathes well. No complaints. Benjamin Saeed MD
== END 2018-07-02 19:10 | disposition home or self-care (01) | DRG 312 ==
LOC: ED 14:39 → ERH 18:59 → 2RSO 21:22
PROVIDERS: ADMIT Internal Medicine; ATTEND Internal Medicine
PROC: 3E0F7GC Introduction of Other Therapeutic Substance into Respiratory Tract, Via Natural or Artificial Opening (ICD-10-PCS; 2018-06-30)
PROC: 0DB68ZX Excision of Stomach, Via Natural or Artificial Opening Endoscopic, Diagnostic (ICD-10-PCS; 2018-07-02)
PROC: 0DB58ZX Excision of Esophagus, Via Natural or Artificial Opening Endoscopic, Diagnostic (ICD-10-PCS; principal; 2018-07-02 08:00)
DX: I95.1 Orthostatic hypotension (principal); N39.0 Urinary tract infection, site not specified; D64.9 Anemia, unspecified; K21.0 Gastro-esophageal reflux disease with esophagitis; K25.9 Gastric ulcer, unspecified as acute or chronic, without hemorrhage or perforation; K44.9 Diaphragmatic hernia without obstruction or gangrene; J43.9 Emphysema, unspecified; I10 Essential (primary) hypertension; F10.20 Alcohol dependence, uncomplicated; F41.9 Anxiety disorder, unspecified; F32.9 Major depressive disorder, single episode, unspecified; E83.42 Hypomagnesemia; R29.6 Repeated falls; F17.210 Nicotine dependence, cigarettes, uncomplicated